=== PATIENT | female | born 1975 | race Caucasian/White ===

== ENCOUNTER → 2021-10-19 | Day surgery (SDC) | payer BC | END | disposition home or self-care (01) | LOC: JRADUS-SUR 08:48 → EDSTATUS 10:00 | PROVIDERS: ATTEND Obstetrics & Gynecology | PROC: BU46YZZ Ultrasonography of Uterus using Other Contrast (ICD-10-PCS; principal; 2021-10-19) | DX: N95.9 Unspecified menopausal and perimenopausal disorder (principal); N88.8 Other specified noninflammatory disorders of cervix uteri; Z53.8 Procedure and treatment not carried out for other reasons | CPT/HCPCS: 36415; 58340; 76830-TC; 84702 ==

== ENCOUNTER 2021-11-28 04:12 | Day surgery (SDC) | payer BC ==
[2021-11-22 16:35] VITALS: BMI 60.9
[2021-11-28] MEDS ORDERED: PROPOFOL 20 ML ONE (10:23)
[2021-11-28] MEDS ORDERED: MIDAZOLAM HCL 2 MG/2 ML SINGLE DOSE VIAL ONE ×2 (10:23)
[2021-11-28] MEDS ORDERED: ONDANSETRON 4 MG/2 ML VIAL IVPUSH PRN (11:26)
[2021-11-28] MEDS ORDERED: oxyCODONE HCL 5 MG TABLET PO PRN (11:26)
[2021-11-28] MEDS ORDERED: LACTATED RINGERS SOLUTION 1,000 ML IV SCH (11:30)
[2021-11-28] MEDS ORDERED: ACETAMINOPHEN 325 MG TABLET (FP) PO PRN (11:31)
[2021-11-28] MEDS ORDERED: IBUPROFEN 400 MG TABLET (FP) PO PRN (11:31)
[2021-11-28 13:16] VITALS: BP 140/92; PULSE 76; TEMP 96.8
== END 2021-11-28 13:20 | disposition home or self-care (01) ==
LOC: JASU-SURG 04:12
PROVIDERS: ATTEND Specialist
PROC: 0UDB7ZX Extraction of Endometrium, Via Natural or Artificial Opening, Diagnostic (ICD-10-PCS; principal; 2021-11-28 11:00)
PROC: 0UJD8ZZ Inspection of Uterus and Cervix, Via Natural or Artificial Opening Endoscopic (ICD-10-PCS; 2021-11-28 11:00)
DX: N95.0 Postmenopausal bleeding (principal)
CPT/HCPCS: 81025; 88305-TC; 94760